=== PATIENT | female | born 1960 | race Caucasian/White ===

== ENCOUNTER 2024-11-27 13:07 | Outpatient (RCR) | payer OTHER, SELFPAY | END 2025-02-05 11:54 | disposition home or self-care (01) | LOC: HO.WCC 13:07 | PROVIDERS: PCP Internal Medicine; Visit Provider Surgery | DX: E11.622 Type 2 diabetes mellitus with other skin ulcer (principal); L97.822 Non-pressure chronic ulcer of other part of left lower leg with fat layer exposed; I70.248 Atherosclerosis of native arteries of left leg with ulceration of other part of lower leg; I87.312 Chronic venous hypertension (idiopathic) with ulcer of left lower extremity; I10 Essential (primary) hypertension; Z92.3 Personal history of irradiation | CPT/HCPCS: 11042; 99213 ==

== ENCOUNTER 2025-04-14 15:00 | Outpatient (RCR) | payer OTHER, SELFPAY | END 2025-06-01 16:33 | disposition home or self-care (01) | LOC: HO.WCC 15:00 | PROVIDERS: PCP Internal Medicine; Visit Provider Surgery Surgical Oncology | DX: E11.622 Type 2 diabetes mellitus with other skin ulcer (principal); L97.222 Non-pressure chronic ulcer of left calf with fat layer exposed; I70.242 Atherosclerosis of native arteries of left leg with ulceration of calf; E11.51 Type 2 diabetes mellitus with diabetic peripheral angiopathy without gangrene; I87.2 Venous insufficiency (chronic) (peripheral); F17.210 Nicotine dependence, cigarettes, uncomplicated; Z71.6 Tobacco abuse counseling; F12.90 Cannabis use, unspecified, uncomplicated | CPT/HCPCS: 11042; 97597; 99203 ==

== ENCOUNTER 2025-04-23 14:13 | Outpatient (AMB) | payer OTHER, SELFPAY ==
--- NOTE | 2025-04-23 14:16 | A.OFFVIS_ITS ---
Intake Visit Reasons: [employer] Wound Care referral for Non-healing wound Intake Note: New patient presents for non healing wound. Has been going on for about a year. No injury , wound appeared. Patient works on her feet all day. Patient goes to wound care once a week. Accompanied by: Self / Same As Patient Allergies codeine Allergy (Mild, Verified 04/23/25 14:18) Nausea HPI HPI [employer] Wound Care referral for Non-healing wound: Details: Very pleasant 65-year-old female who presents for evaluation regarding nonhealing lower extremity wound. She has been followed by our wound care center and is noted to have a longstanding left posterior calf ulceration on the left side. She [facility] in November of 2024. It has been persistent and nonhealing. At the current time she smokes about a half a pack per day she occasionally uses marijuana and is a diabetic as well. She now presents for vascular evaluation. Review of Systems Const All systems reviewed & are unremarkable except as noted in HPI and below Reports no additional complaints ENT Reports Normal hearing present Card Denies chest pain, Denies chest pain at rest, Denies chest pain with activity and Denies pedal edema Resp Denies cough GI Denies abdominal pain Musc Denies abnormal gait, Denies muscle cramps and Denies radiating pain into limb Skin/Breast Denies skin ulcer and Denies wounds Neuro Reports Normal hearing present and Denies abnormal gait Psych Reports no additional complaints Physical Exam Const General: cooperative, healthy appearing and comfortable Orientation/consciousness: oriented to person, oriented to place and oriented to time HEENT Head: Yes normal to inspection Neck Neck: Yes normal visual inspection Carotids: no bruits Chest Chest palpation & inspection: normal inspection of the chest Resp Effort & Inspection: normal respiratory effort and able to speak in complete sentences Auscultation: clear to auscultation bilaterally, no crackles, no rales, no rhonchi and no wheezes Cardio Other: Bilateral DP signals Rate: regular rate Rhythm: regular rhythm Heart sounds: S1 normal heart sound present and S2 normal heart sound present Bruits: no carotid bruits Peripheral pulses: Peripheral pulses 2+ throughout GI Inspection: Yes normal to inspection Skin Other: Left lateral leg ulceration Wounds: no wounds Hair: normal Neuro General: oriented to person, oriented to place and oriented to time Cranial nerves: Yes CN's II-XII intact bilaterally and Yes Normal hearing present Cognition (Neuro): normal cognition Motor exam (neuro): 5/5 motor strength present throughout Extrem Other: venous exam: No significant superficial varicosities or spider telangiectasias, minimal edema General: No clubbing, No cyanosis and No edema Psych Appearance: grossly normal Mental Status: mental status grossly normal Speech and movement: Normal speech and movement present Assessment & Plan Assessment & Plan (1) PAD (peripheral artery disease): Code(s): I73.9 - Peripheral vascular disease, unspecified Category: Medical Plan: In short patient has an element of peripheral vascular disease with nonhealing ulcer. She does have some of the risk factors including smoking and diabetes.. I did review the pathophysiology of peripheral vascular disease with the patient. In addition we did discuss routine conservative measures including a healthy diet and the importance of exercise and ambulation. We did discuss risk factor modification. The patient will require noninvasive arterial testing to better elucidate the location of arterial disease. She will most likely require endovascular intervention to aid in trying to get this wound to heal.. Thank you for allowing us to participate in this patient's care. If there are any questions or concerns please do not hesitate to contact us. Orders: Orders US arterial duplex LE BI Today I73.9 - Peripheral vascular disease, unspecified Coding Level of Care Code New Pt Level 4 (90895) Complex EM visit Add On G2211 Diagnoses PAD (peripheral artery disease) I73.9
--- OUTSIDE RECORDS SUMMARY | 2025-04-23 15:32 | XMS_ITS | Patient Health Record ---
Author Organization [facility] Address [address] [place] [address] Care Team Providers Care Lens Grinder Name Role Phone Gonzalez GAY, Preeti Primary Care Provider VIOLET Amato Unavailable [phone] Allergies Allergen (clinical drug ingredient) Drug/Non Drug Allergy documented on EMR Reaction Allergy Type Onset Date Status Codeine Phosphate dizzy Drug Allergy Active Reason For Referral No Information Medications Medication SIG (Take, Route, Frequency, Duration) Notes Start Date End Date Status Digoxin Active metFORMIN HCl Active Flonase Active toprol Active Warfarin Sodium Acti ve Levothyroxine-Liothyronine Active albuterol Active Social History Tobacco Use: Social History Observation Description Date Details (start date - stop date) Current Smoker NA - NA Tobacco Use/Smoking Question Answer Notes Are you a current smoker How often do you smoke cigarettes? every day How many cigarettes a day do you smoke? 21-30 Alcohol Screen (Audit-C) Question Answer Notes Did you have a drink containing alcohol in the p ast year? No Points 0 Interpretation Negative Tobacco use other than smoking: Question Answer Notes Are you an other tobacco user? No Problems Problem Type SNOMED Code ICD Code Onset Dates Problem Status W/U Status Risk Notes Problem Tobacco use (763172266) Tobacco use (Z72.0) Active confirmed Plan Of Treatment Pending Test Test Name Order Date MM Digital Screening Mammogram 3D 2019 Insurance Providers Payer Name Payer Address Payer Phone Subscriber Number Group Number Insured Name Patient Relationship to Insured Coverage Start Date Coverage End Date [employer] [address] [id number] [id number] AHUMADA Self - patient is the insured Medical (General) History Medical History History ICD Code Unspecified atrial fibrillation I48.91 Hypothyroidism, unspecified E03.9 Prediabetes R73.03 Chronic obstructive pulmonary disease, u nspecified J44.9 Surgical History Surgery Date(Month/Year) Tubal 2006 Hospitalization History Reason Date(Month/Year) Thyroid issues - had radiation for overa ctive thyroid 2005
--- OUTSIDE RECORDS SUMMARY | 2025-04-23 15:32 | XMS_ITS | Clinical Summary ---
Author Organization [facility] Address [address] [place] [address] Phone Care Team Providers Care Diesel Stationary Engineer Name Role Phone Preeti Roth MD Primary Care Provider [phone] Encounters Date Type Department Care Team Description 02/04/2025 4:04 PM EDT - 02/04/2025 11:59 PM EDT Hospital Encounter [facility] Xray [address] [place] [id number] Radicular pain of right upper extremity Discharge Disposition: Home or Self Care from Last 3 Months Social History Tobacco Use Types Packs/Day Years Used Date Smoking Tobacco: Never Assessed Comments No Sex and Gender Information Value Date Recorded Sex Assigned at Not on file Legal Sex Female 2:17 PM EST Gender Identity Not on file Sexual Orientation Not on file Obstetrics History Para Term AB IAB SAB Ectopic Multiple Livin g Live Births 1 Last Filed Vital Signs Vital Sign Reading Time Taken Comments Blood Pressure - - Pulse - - Temperature - - Respiratory Rate - - Oxygen Saturation - - Inhaled Oxygen Concentration - - Weight 101 kg (223 lb) 11/03/2024 9:17 AM EDT Height 162.6 cm (5' 4 ) 11/03/2024 9:17 AM EDT Body Mass Index 38.28 11/03/2024 9:17 AM EDT Plan of Treatment Health Maintenance Due Date Last Done Comments DTaP,Tdap,and Td Vaccines (1 - Tdap) 1978 Pneumococcal Vaccine: 50+ Years (1 of 1 - PCV) 2009 Zoster Vaccines (1 of 2) 2009 Colorectal Cancer Screening: Colonoscopy 07/19/2022 Hepatitis C Screening 07/19/2022 Osteoporosis Screening (Bone Density Screening) 07/19/2022 Social Influencers of Health Screening 07/19/2022 Falls Risk Assessment 01/24/2024 Depression Screening 08/20/2024 COVID-19 Vaccine ( season) 2024 05/07/2024, 08/27/2021, 02/12/2021, Additional history exists Influenza Vaccine (#1) 2025 , 05/14/2023, 05/08/2022, Additional history exists Breast Cancer Screening 11/03/2026 11/04/19, 05/24/2022, 2021, Additional history exists RSV Immunization Adult Patients (1 - 1-dose 75+ series) 2034 HIB Vaccines Aged Out No longer eligi ble based on patient's age to complete this topic HPV Vaccines Aged Out No longer eligi ble based on patient's age to complete this topic Hepatitis A Vaccines Aged Out No long er eligible based on patient's age to complete this topic Hepatitis B Vaccines Aged Out No long er eligible based on patient's age to complete this topic IPV Vaccines Aged Out No longer eligi ble based on patient's age to complete this topic MMR Vaccines Aged Out No longer eligi ble based on patient's age to complete this topic Meningococcal ACWY Vaccine Aged Out N o longer eligible based on patient's age to complete this topic Meningococcal B Vaccine Aged Out No l onger eligible based on patient's age to complete this topic RSV Immunization Patients Under 20 months Aged Out No longer eligible based on patient's age to complete this topic Varicella Vaccines Aged Out No longer eligible based on patient's age to complete this topic Procedures Procedure Name Priority Date/Time Associated Diagnosis Comments XR CERVICAL SPINE 2-3 VIEWS Routine 02/04/2025 4:15 PM EDT Radicular pain of right upper extremity MG MAMMO DIGITAL SCREENING W WILL BILAT Routine 11/03/2024 9:22 AM EDT Encounter for screening mammogram for breast cancer from Last 3 Months or Most Recently Relevant to Health Maintenance Results * XR Cervical Spine 2-3 Views (02/04/2025 4:15 PM EDT) Anatomical Region Laterality Modality Spine, C-spine Radiographic Laurel ging 02/05/2025 10:0 3 AM EDT Impressions 02/05/2025 10:04 AM EDT Straightening of the cervical lordosis consistent with muscle spasm. Grade 1, 2.7 mm posterior spondylolisthesis of C5 relative to C6. There is degenerative disc disease at the C5-6 level. Code 13109 -------- FINAL REPORT -------- Dictated By: Mikey Frederick Dictated Date: 02/05/2025 10:03 ET Assigned Physician: Mikey Frederick Reviewed and Electronically Signed By: Mikey Frederick Signed Date: 02/05/2025 10:04 ET Workstation ID: [id number] Transcribed By: Self Edit Transcribed Date: 02/05/2025 10:03 ET Narrative 02/05/2025 10:04 AM EDT HISTORY: The patient is a 65-year-old female with neck pain. No history of trauma is provided. FINDINGS: AP, lateral, and open-mouth views of the cervical spine are obtained. C1 and C2 are partially obscured by the patient's earrings. The study demonstrates straightening of the cervical lordosis consistent with muscle spasm. There is grade 1, 2.7 mm posterior spondylolisthesis of C5 relative to C6. No fracture is seen. There is marked narrowing of the C5-C6 disc space consistent with degenerative disc disease. The remaining disc spaces are well-maintained. There is no prevertebral soft tissue swelling. Procedure Note Mikey Frederick MD - 02/05/2025 HISTORY: The patient is a 65-year-old female with neck pain. No historyof trauma is provided. FINDINGS: AP, lateral, and open-mouth views of the cervical spine areobtained. C1 and C2 are partially obscured by the patient's earrings.The study demonstrates straightening of the cervical lordosis consistentwith muscle spasm. There is grade 1, 2.7 mm posterior spondylolisthesisof C5 relative to C6. No fracture is seen. There is marked narrowing ofthe C5-C6 disc space consistent with degenerative disc disease. Theremaining disc spaces are well-maintained. There is no prevertebral softtissue swelling. IMPRESSION: Straightening of the cervical lordosis consistent with muscle spasm.Grade 1, 2.7 mm posterior spondylolisthesis of C5 relative to C6. Thereis degenerative disc disease at the C5-6 level. Code 54779 -------- FINAL REPORT -------- Dictated By: Mikey Frederick Dictated Date: 02/05/2025 10:03 ET Assigned Physician: Mikey Frederick Reviewed and Electronically Signed By: Mikey Frederick Signed Date: 02/05/2025 10:04 ET Workstation ID: [id number] Transcribed By: Self Edit Transcribed Date: 02/05/2025 10:03 ET us Preeti Roth MD IMG XR PROCEDURES Final Result * MG Mammo Digital Screening w Will bilat (11/03/2024 9:22 AM EDT) Anatomical Region Laterality Modality Breast Bilateral Mammography 11/03/2024 11:4 9 AM EDT Impressions 11/03/2024 11:55 AM EDT No mammographic evidence of malignancy. No suspicious interval change. A negative mammogram in the presence of a clinically suspicious palpable abnormality does not preclude the possibility of malignancy or alter the indications for biopsy. ASSESSMENT: BI-RADS 1: NEGATIVE RECOMMENDATION(S): 1: Routine screening mammogram BILATERAL in 1 year. [facility] [address], [address] -------- FINAL REPORT -------- Dictated By: Onur Richard Dictated Date: 11/03/2024 11:49 ET Assigned Physician: Onur Richard Reviewed and Electronically Signed By: Onur Richard Signed Date: 11/03/2024 11:55 ET Workstation ID: [id number] Transcribed By: Self Edit Transcribed Date: 11/03/2024 11:49 ET Narrative 11/03/2024 11:55 AM EDT EXAM: SCREENING MAMMOGRAPHY, BILATERAL HISTORY: SCREENING. No additional history. COMPARISON: 05/23/2022, 01/21/2021 TECHNIQUE: Synthesized CC and MLO projections of each breast. Tomosynthesis of each breast in the CC and MLO projections. ADDITIONAL IMAGING: None Computer-aided detection was employed with the [employer] AI 3-D. TISSUE DENSITY: There are scattered areas of fibroglandular density. (BI-RADS category B) FINDINGS: RIGHT BREAST: No suspicious mass. No suspicious calcification. No distortion. No additional suspicious right breast findings LEFT BREAST: No suspicious mass. No suspicious calcification. No distortion. No additional suspicious left breast findings Procedure Note Onur Richard MD - 11/03/2024 EXAM: SCREENING MAMMOGRAPHY, BILATERAL HISTORY: SCREENING. No additional history. COMPARISON: 05/23/2022, 01/21/2021 TECHNIQUE: Synthesized CC and MLO projections of each breast.Tomosynthesis of each breast in the CC and MLO projections. ADDITIONAL IMAGING: None Computer-aided detection was employed with the [employer] AI 3-D. TISSUE DENSITY: There are scattered areas of fibroglandular density.(BI-RADS category B) FINDINGS: RIGHT BREAST: No suspicious mass. No suspicious calcification. No distortion. Noadditional suspicious right breast findings LEFT BREAST: No suspicious mass. No suspicious calcification. No distortion. Noadditional suspicious left breast findings IMPRESSION: No mammographic evidence of malignancy. No suspicious interval change. A negative mammogram in the presence of a clinically suspicious palpableabnormality does not preclude the possibility of malignancy or alter theindications for biopsy. ASSESSMENT: BI-RADS 1: NEGATIVE RECOMMENDATION(S): 1: Routine screening mammogram BILATERAL in 1 year. [facility] location[facility] [address], [address] -------- FINAL REPORT -------- Dictated By: Onur Richard Dictated Date: 11/03/2024 11:49 ET Assigned Physician: Onur Richard Reviewed and Electronically Signed By: Onur Richard Signed Date: 11/03/2024 11:55 ET Workstation ID: [id number] Transcribed By: Self Edit Transcribed Date: 11/03/2024 11:49 ET us Self Referral Sppl IMG BI PROCEDURES Final Resul t from Last 3 Months or Most Recently Relevant to Health Maintenance Insurance [employer] Care Teams Diesel Stationary Engineer Relationship Specialty Start Date End Date Preeti Roth MD [address] [place] [address] PCP - General Internal Medicine 11/03/24
== END 2025-04-23 14:33 | disposition home or self-care (01) ==
LOC: HO.HVS 14:14
PROVIDERS: PCP Internal Medicine; Visit Provider Surgery Vascular Surgery
DX: I73.9 Peripheral vascular disease, unspecified (principal)
CPT/HCPCS: 99204; G2211